=== PATIENT | female | born 1990 ===

== ENCOUNTER 2018-05-10 19:06 | Emergency (ER) | payer OTHER ==
--- NOTE | 2018-05-10 19:53 | ED PDOC ---
Arrival/HPI <James White - Last Filed: 05/10/18 20:55> - General Historian: Patient <Mitzi Lugo - Last Filed: 05/10/18 20:55> - General Chief Complaint: Headache Time Seen by Provider: 05/10/18 19:43 - History of Present Illness Narrative History of Present Illness (Text): 05/10/18 19:55 27-year-old female presents today with a 3 week history of worsening bilateral neck pain right greater than left. Patient states the pain started 3 weeks ago as a very mild achy pain in the neck worse with movement of the neck. pt states the pain has progressively been worsening and feels as if the neck is becoming more stiff. pt states it hurts more to turn the neck to the right. Patient states she's been taking Motrin without improvement in her neck pain. Patient states she's been trying to apply warm water bottles to the neck. Patient states she is also tried Tylenol without improvement. Patient denies numbness weakness or tingling in the extremities. She denies any trauma or injury. She denies fevers or chills. Patient states that she has pain in the posterior aspect of the scalp that she describes as a pulling an aching sensation when she turns the head/neck. pt denies n/v/d/c. no other complaints. (Mitzi Lugo) Past Medical History - Provider Review Nursing Documentation Reviewed: Yes - Travel History Have you recently traveled outside [place] w/in the past 3 mons?: No - Infectious Disease Hx of Infectious Diseases: None - Psychiatric Hx Substance Use: No <Mitzi Lugo - Last Filed: 05/10/18 20:55> Family/Social History - Physician Review Nursing Documentation Reviewed: Yes Family/Social History: Unknown Family HX Smoking Status: Heavy Smoker > 10 Cigarettes Daily Hx Alcohol Use: No Hx Substance Use: No <Mitzi Lugo - Last Filed: 05/10/18 20:55> Allergies/Home Meds <James White - Last Filed: 05/10/18 20:55> <Mitzi Lugo - Last Filed: 05/10/18 20:55> Allergies/Adverse Reactions: Allergies seafood Allergy (Uncoded 05/10/18 19:25) ANAPHYLAXIS Review of Systems - Review of Systems Constitutional: absent: Fatigue, Fevers Respiratory: absent: SOB, Cough Cardiovascular: absent: Chest Pain, Palpitations Gastrointestinal: absent: Abdominal Pain, Nausea, Vomiting Genitourinary Female: absent: Dysuria Musculoskeletal: Neck Pain. absent: Arthralgias, Back Pain Skin: absent: Rash, Pruritis Neurological: Headache. absent: Dizziness, Gait Changes, Speech Changes, Disequilibrium Psychiatric: absent: Anxiety, Depression <Mitzi Lugo - Last Filed: 05/10/18 20:55> Physical Exam Vital Signs Reviewed: Yes Temperature: Afebrile Blood Pressure: Normal Pulse: Regular Respiratory Rate: Normal Appearance: Positive for: Well-Appearing, Non-Toxic, Comfortable Pain Distress: None Mental Status: Positive for: Alert and Oriented X 3 - Systems Exam Head: Present: Atraumatic Pupils: Present: PERRL Extroacular Muscles: Present: EOMI Mouth: Present: Moist Mucous Membranes Neck: Present: Paraspinal Tenderness (+ bilateral paraspinal tenderness, + bilateral trapezius tenderness; ), Trachea Midline. No: Normal Range of Motion (stiff ROM of neck), MIDLINE TENDERNESS, Lymphadenopathy Respiratory/Chest: Present: Clear to Auscultation, Good Air Exchange. No: Respiratory Distress, Accessory Muscle Use Cardiovascular: Present: Regular Rate and Rhythm, Normal S1, S2. No: Murmurs Back: Present: Normal Inspection. No: Midline Tenderness Upper Extremity: Present: Normal Inspection, Normal ROM, NORMAL PULSES, Capillary Refill < 2s Neurological: Present: GCS=15, Speech Normal, Motor Func Grossly Intact, Normal Sensory Function, Gait Normal Skin: Present: Warm, Dry, Normal Color. No: Rashes Psychiatric: Present: Alert, Oriented x 3 <Mitzi Lugo - Last Filed: 05/10/18 20:55> Vital Signs Temp Pulse Resp BP Pulse Ox 05/10/18 20:03 98.4 F 73 17 132/80 100 Medical Decision Making <James White - Last Filed: 05/10/18 20:55> Re-evaluation Time: 20:50 Reassessment Condition: Re-examined, Improved <Mitzi Lugo - Last Filed: 05/10/18 20:55> ED Course and Treatment: 05/10/18 19:59 Patient nontoxic well-appearing in no distress with stable vital signs. c/o 3 week history of worsening bilateral neck pain. pt with bilateral trapezius tenderness and paraspinal tenderness with stiff full rom of neck. sensation and distal pulses intact in extremities. full rom of extremities. no muscle weakness. ambulating with steady gait. toradol and valium given Patient reassessment: Feeling better with medications, Muscle strength 5 out of 5 bilaterally. I advised to followup with the orthopedist/dr. grey within the next 2 days. Return if symptoms worsen persist or new symptoms develop Patient verbalizes understanding of discharge instructions and need for immediate followup. all aspects of this case were discussed the attending of record. Impression: Neck pain Motrin every 6 hours as needed for pain Flexeril one tablet every 8 hours as needed for muscle spasms: May cause drowsiness Followup with the orthopedist within the next 2 days Followup with primary care physician within the next 2 days Return if symptoms worsen persist or if new symptoms develop (Mitzi Lugo) - Medication Orders Current Medication Orders: Discontinued Medications Diazepam (Valium) 2 mg PO ONCE ONE PRN Reason: Protocol Stop: 05/10/18 19:45 Last Admin: 05/10/18 20:34 Dose: 2 mg Ketorolac Tromethamine (Toradol) 60 mg IM STAT STA Stop: 05/10/18 19:44 Last Admin: 05/10/18 20:34 Dose: 60 mg MAR Pain Assessment Document 05/10/18 20:34 IT (Rec: 05/10/18 20:34 IT [id number]) Pain Reassessment Is this a pain reassessment? No IM Administration Charges Document 05/10/18 20:34 IT (Rec: 05/10/18 20:34 IT [id number]) Injection Site MAR Injection Site Left Deltoid Charges for Administration # of IM Administrations 1 - PA / HOME ADVISOR / Resident Statement MD/DO has reviewed & agrees with the documentation as recorded. <James White - Last Filed: 05/10/18 20:55> Disposition/Present on Arrival <James White - Last Filed: 05/10/18 20:55> - Present on Arrival Any Indicators Present on Arrival: No History of DVT/PE: No History of Uncontrolled Diabetes: No Urinary Catheter: No History of Decub. Ulcer: No History Surgical Site Infection Following: None - Disposition Have Diagnosis and Disposition been Completed?: Yes Disposition Time: 19:46 Patient Plan: Discharge <Mitzi Lugo - Last Filed: 05/10/18 20:55> - Disposition Diagnosis: Neck pain Disposition: HOME/ ROUTINE Patient Problems: Current Active Problems Problem Status Onset Neck pain Acute Condition: GOOD Discharge Instructions (ExitCare): Muscle Spasms (DC), Generalized Neck Pain Additional Instructions: Motrin every 6 hours as needed for pain Valium one tablet every 8 hours as needed for muscle spasms: May cause drowsiness Followup with the orthopedist within the next 2 days Followup with primary care physician within the next 2 days Return IMMEDIATELY if symptoms worsen persist or if new concerning symptoms develop Prescriptions: diaZEpam [Valium] 2 mg PO Q8H PRN #6 tab PRN Reason: muscle spasms Ibuprofen [Motrin] 600 mg PO Q6H PRN #20 tab PRN Reason: pain/fever reduction Referrals: Katheryn Alvarez MD [Staff Provider] - [place] [facility] [place] Provider] - [place] [facility] [place] - Follow up with primary Forms: [employer] ([place]ian), WORK NOTE
[2018-05-10 20:04] VITALS: O2SAT 100
[2018-05-10 21:11] VITALS: BP 128/72; PULSE 74; RESP 16; TEMP 98
== END 2018-05-10 21:11 | disposition home or self-care (01) ==
LOC: ED 19:06 → MERGE 19:06 → ED 21:11
DX: M54.2 Cervicalgia (principal)
CPT/HCPCS: 96372; 99285; J1885

== ENCOUNTER 2018-11-26 10:44 | Emergency (ER) | payer MEDICAID, OTHER ==
[2018-11-26 11:30] VITALS: BMI 34.3
[2018-11-26 11:39] VITALS: RESP 18
--- NOTE | 2018-11-26 11:59 | ED PDOC ---
Arrival/HPI - General Chief Complaint: Pain, Chronic Time Seen by Provider: 11/26/18 11:41 Historian: Patient - History of Present Illness Narrative History of Present Illness (Text): 11/26/18 12:01 28yo female with pmhx of Depression who present with complaint of intermittent pain that radiates from her neck to all her extremities with intermittent numbness x weeks.Describes pain as "electric shock". States she saw her PMD and orthopedist for same complaint and was given analgesic and Flexeril without relieve. Reports that the pain makes her depressed. Reports taking Ibuprofen this morning without relieve. Denies focal weakness, nausea, vomiting, headache, nuchal ridgity, fever, chills, rash, dizziness, any other complaint. Past Medical History - Provider Review Nursing Documentation Reviewed: Yes - Infectious Disease Hx of Infectious Diseases: None - Musculoskeletal/Rheumatological Hx Back Pain: Yes - Psychiatric Hx Anxiety: Yes Hx Substance Use: No - Surgical History Hx Section: Yes (2) - Anesthesia Hx Anesthesia: Yes Hx Anesthesia Reactions: No Hx Malignant Hyperthermia: No Family/Social History - Physician Review Nursing Documentation Reviewed: Yes Family/Social History: Unknown Family HX Smoking Status: Heavy Smoker > 10 Cigarettes Daily Hx Alcohol Use: No Hx Substance Use: No Allergies/Home Meds Allergies/Adverse Reactions: Allergies seafood Allergy (Uncoded 11/26/18 11:30) ANAPHYLAXIS Home Medications: Home Meds Medication Instructions Recorded Confirmed Cyclobenzaprine [Flexeril] 1 tab PO HS 11/26/18 11/26/18 Nabumetone [Relafen] 2 tab PO DAILY 11/26/18 11/26/18 Sertraline [Zoloft] 1 tab PO DAILY 11/26/18 11/26/18 traZODone [Desyrel] 1 tab PO HS 11/26/18 11/26/18 Review of Systems - Physician Review All systems were reviewed & negative as marked: Yes - Review of Systems Constitutional: Normal Eyes: Normal ENT: Normal Respiratory: Normal Cardiovascular: Normal Gastrointestinal: Normal Genitourinary Female: Normal Musculoskeletal: Myalgias Skin: Normal Neurological: Normal Endocrine: Normal Hemo/Lymphatic: Normal Psychiatric: Normal Physical Exam Vital Signs Reviewed: Yes Vital Signs Temp Pulse Resp BP Pulse Ox 11/26/18 11:38 98.5 F 77 18 131/83 98 Temperature: Afebrile Blood Pressure: Normal Pulse: Regular Respiratory Rate: Normal Appearance: Positive for: Well-Appearing, Non-Toxic, Comfortable Pain Distress: None Mental Status: Positive for: Alert and Oriented X 3 - Systems Exam Head: Present: Atraumatic, Normocephalic Pupils: Present: PERRL Extroacular Muscles: Present: EOMI Conjunctiva: Present: Normal Mouth: Present: Moist Mucous Membranes Neck: Present: Normal Range of Motion. No: Meningeal Signs, MIDLINE TENDERNESS, Paraspinal Tenderness Respiratory/Chest: Present: Clear to Auscultation, Good Air Exchange. No: Respiratory Distress, Accessory Muscle Use Cardiovascular: Present: Regular Rate and Rhythm, Normal S1, S2. No: Murmurs Abdomen: No: Tenderness, Distention, Peritoneal Signs Back: Present: Normal Inspection Upper Extremity: Present: Normal Inspection. No: Cyanosis, Edema Lower Extremity: Present: Normal Inspection. No: Edema Neurological: Present: GCS=15, CN II-XII Intact, Speech Normal Skin: Present: Warm, Dry, Normal Color. No: Rashes Psychiatric: Present: Alert, Oriented x 3, Normal Insight, Normal Concentration Disposition/Present on Arrival - Present on Arrival Any Indicators Present on Arrival: No History of DVT/PE: No History of Uncontrolled Diabetes: No Urinary Catheter: No History of Decub. Ulcer: No History Surgical Site Infection Following: None - Disposition Have Diagnosis and Disposition been Completed?: Yes Diagnosis: Myalgia, Fibromyalgia Disposition: HOME/ ROUTINE Disposition Time: 12:10 Patient Plan: Discharge Condition: STABLE Discharge Instructions (ExitCare): Fibromyalgia (DC), Fibromyalgia Additional Instructions: Follow up with your Doctor/Neurologist Return to ED for any new or worsening symptoms Prescriptions: Pregabalin [Lyrica] 75 mg PO BID #12 cap Referrals: Raine Glasgow MD [Primary Care Provider] - Follow up with primary Wilfredo Quezada MD [Staff Provider] - Follow up with primary Forms: [employer] ([place])
[2018-11-26 12:39] VITALS: BP 124/81; PULSE 79; TEMP 98.1; O2SAT 99
== END 2018-11-26 12:58 | disposition home or self-care (01) ==
LOC: ED 10:44
DX: M79.7 Fibromyalgia (principal); F17.210 Nicotine dependence, cigarettes, uncomplicated

== ENCOUNTER 2018-12-08 12:09 | Outpatient (CLI) | payer OTHER | END 2018-12-08 12:10 | disposition home or self-care (01) | LOC: LAB 12:09 ==